=== PATIENT | female | born 1995 | race Caucasian/White ===

== ENCOUNTER → 2020-08-16 | Outpatient (CLI) | payer OTHER ==
--- NOTE | 2020-08-16 10:39 | US ---
EXAMINATION TYPE: US thyroid st tissue head/neck DATE OF EXAM: 08/16/2020 COMPARISON: NONE CLINICAL HISTORY: E04.9 NONTOXIC GOITER. Goiter, pt states felt thyroid was enlarged GLAND SIZE: Right Lobe: 5.4 x 1.4 x 2.3 cm Overall Parenchyma: homogenous Left Lobe: 4.8 x 1.0 x 1.8 cm Overall Parenchyma: homogeneous Isthmus Thickness: 0.2 cm NODULES RIGHT: # of nodules measured on right: 1 1. 0.6 cm colloid cyst Prior size: No prior LEFT: # of nodules measured on left: 1 1. 0.4 cm colloid cyst Prior size: No prior Bilateral neck scanned, no evidence of lymphadenopathy. Multiple sub-centimeter colloid cysts scatter ed bilaterally, largest on each side measured. IMPRESSION: Multiple subcentimeter thyroid cysts. Mild thyromegaly.
== END | disposition home or self-care (01) ==
LOC: RADUSWWP 09:59
PROVIDERS: ATTEND Family Medicine
DX: E04.2 Nontoxic multinodular goiter (principal)
CPT/HCPCS: 76536